=== PATIENT | female | born 1990 | race Caucasian/White ===

== ENCOUNTER 2019-12-12 19:44 | Emergency (ER) | payer SELFPAY ==
[2019-12-12 19:53] VITALS: BP 99/66; PULSE 75; RESP 15; TEMP 36.4; O2SAT 100; BMI 22.3
--- NOTE | 2019-12-12 20:10 | ED_ITS ---
Entered by Judi Chen, acting as scribe for CarlosHalina Sandro HPI - Female Genitourinary General: Chief complaint: Vaginal Bleeding Stated complaint: n/v/abnormal period Time Seen by Provider: 12/12/19 20:07 Source: patient Mode of arrival: ambulatory Limitations: no limitations History of Present Illness: HPI Narrative: 29 yo f came to the er for nausea, vomiting and vaginal bleeding. Onset was today. Pt states that she has been very lightheaded,chills, lower abd pain, vomiting, migraine and and large blood clotts around 1830 this evening. MD elicited complaint: vaginal bleeding and other (nausea, vomiting, numbness in ext, lightheaded, chills, lower abd pain and migraine) Onset (ago): day(s) (today) Location of symptoms: vaginal Severity: mild Quality of pain: cramping Consistency: constant Vaginal discharge: none Vaginal bleeding: heavy and clots Exacerbating factors: none Relieving factors: none Associated symptoms: Reports abdominal pain, fevers/chills, headache(s), nausea and vaginal bleeding; Deny syncope Patient : No Date of Last Menstrual Period: 12/09/19 Review of Systems General: Reports: other (negative unless marked) Const: Reports: fever and chills Eyes: Denies: change in vision or blurry vision ENMT: Denies: throat pain, painful swallowing, hoarseness, ear pain, ear discharge, Change in hearing or nasal discharge Card: Denies: chest pain, palpitations, irregular heart rhythm, syncope, pre- syncope, shortness of breath on exertion or shortness of breath when lying down Resp: Denies: shortness of breath, productive cough, non-productive cough, wheezing, coughing up blood or chest congestion GI: Reports: abdominal pain, nausea and vomiting : Reports: vaginal bleeding Musc: Denies: neck pain, back pain, extremity pain, extremity swelling, joint pain, joint swelling, joint warmth or joint stiffness Skin/Breast: Denies: rash, skin tenderness or yellow skin Neuro: Reports: headache and numbness in extremities Endo: Denies: excessive thirst, tired all the time, cold intolerance, excessive sweating, flushing or hot flashes Alex/Lymph: Denies: easy bruising, easy bleeding, petechiae or enlarged lymph nodes All/Imm: Denies: hives, throat swelling, tongue swelling, facial swelling or acute wheezing PFSH ED PFSH: Social History Smoking and tobacco status: former smoker Female Reproductive History: Date of last menstrual period: 12/09/19 Physical Exam Const: COMMON NORMALS: no apparent distress, oriented x3, no limitations, healthy appearing and well nourished EXAM LIMITATIONS: no altered mental status GENERAL APPEARANCE: cooperative, well kempt and well developed ORIENTATION/CONSCIOUSNESS: Yes awake HENMT: COMMON NORMALS: normocephalic, head/scalp atraumatic, hearing grossly normal bilaterally, external ears normal, EAC's normal, external nose normal and moist oral mucous membranes HEAD & SCALP: normal to inspection, normocephalic and atraumatic FACE & SINUS: normal facial exam and face symmetric NOSE: external nose normal and nares normal EXTERNAL EAR: Yes external ears normal EXTERNAL AUDITORY CANAL: EAC's normal MOUTH: oral and palatal mucosa normal and tongue normal Eye: COMMON NORMALS: PERRL, EOMs intact bilaterally, conjunctivae normal and no scleral icterus GENERAL EYE: normal appearance of both eyes and normal light reflex CONJUNCTIVA: Yes conjunctivae normal SCLERA: sclerae normal CORNEA: Yes corneas normal PUPIL: Yes PERRL DIRECT OPHTHALMOSCOPY: Yes normal light reflex Neck/C-Spine: COMMON NORMALS: full ROM, no lymphadenopathy, supple, no meningeal signs and no JVD GENERAL: Yes normal visual inspection and Yes trachea midline CERVICAL SPINE: Yes cervical ROM normal Chest: COMMONS NORMALS: inspection of chest normal and palpation of chest normal Resp: COMMON NORMALS: normal respiratory effort, no retractions, no use of accessory muscles and clear to auscultation bilaterally EFFORT & INSPECTION: Yes able to speak in complete sentences AUSCULTATION: clear to auscultation bilaterally Cardio: COMMON NORMALS: no JVD, regular rate, regular rhythm, S1 normal heart sound, S2 normal heart sound, no gallops, no clicks, no murmurs and no rub JUGULAR VENOUS DISTENTION: no JVD RATE: regular rate RHYTHM: regular rhythm HEART SOUNDS: S1 normal and S2 normal GI: COMMON NORMALS: soft to palpation, non-tender, no hepatosplenomegaly and no masses INSPECTION: Yes normal to inspection PALPATION: Yes soft and Yes no hepatosplenomegaly : COMMON NORMALS: Yes no CVA tenderness and Yes bimanual exam normal BLADDER/KIDNEY EXAM: Yes no CVA tenderness SPECULUM EXAM - VAGINA: Yes vaginal bleeding SPECULUM EXAM - CERVIX: Yes cervical os closed BIMANUAL EXAM - VAGINA & UTERUS: Yes normal bimanual exam, Yes normal cervical palpation and No cervical motion tenderness OB/EXTERNAL & SPECULUM: vaginal bleeding Back/Pelvis: COMMON NORMALS: no CVA tenderness, thoracic and lumbar spine normal to inspection, no thoracic nor lumbar tenderness and thoraco-lumbar ROM normal Extremity: COMMON NORMALS: normal to inspection, full ROM, normal capillary refill, no joint enlargement, no clubbing, cyanosis or edema and no calf tenderness Neuro: COMMON NORMALS: oriented x3, CN's II-XII intact bilaterally, moves all extremities, no focal motor deficits and no sensory deficits noted MENINGEAL SIGNS: Yes no meningeal signs Psych: COMMON NORMALS: mental status grossly normal, thought process normal, cooperative, affect normal, speech normal and activity/motor behavior normal APPEARANCE: Yes well kempt SPEECH: Yes normal speech THOUGHT PROCESS: normal thought process Skin: COMMON NORMALS: no rashes or lesions noted, skin turgor normal, no jaundice, no petechiae and no mottling GENERAL SKIN EXAM: no rashes or lesions noted and turgor normal Course Vital Signs: Vital signs: Vital Signs Temperature 97.5 F L 12/12/19 19:53 Pulse Rate 99 12/12/19 23:32 Respiratory Rate 19 H 12/12/19 23:32 Blood Pressure 94/74 12/12/19 23:32 Pulse Oximetry 99 12/12/19 23:32 MDM - Female MDM Narrative: Medical decision making narrative: Jenny is a very nice 29-year-old female who comes in complaining of a heavy menstrual cycle, generalized malaise, chills and a headache. She had no measured fever. A cause cannot be determined although viral syndrome is still a possibility but has been ruled out and the patient's ultrasound is unremarkable. I have offered further work-up to include CT of the head as well as abdomen pelvis to look for pathology a spinal tap and cardiac markers but the patient refuses. She is feeling much better and wants to go home. She agrees to return should her symptoms change or worsen. Lab Data: Attestation: I reviewed the patient's lab results. Labs: Lab Results 12/12/19 12/12/19 12/12/19 Range/Units 20:09 20:09 20:09 WBC 7.7 (4.0-10.0) 10^3/ uL RBC 4.82 (4.1-5.3) 10^6/u L Hgb 12.6 (11.5-15.3) g/dL Hct 39.9 (37.0-47.0) % MCV 82.8 (81-99) fL MCH 26.1 L (28.0-34.0) pg MCHC 31.6 (30.0-36.0) g/dL RDW 12.6 (12.1-15.1) % Plt Count 221 (130-400) 10^3/c mm MPV 11.3 H (7.4-10.4) fL Neut % (Auto) 82.2 % Lymph % (Auto) 11.5 % [place] % (Auto) 4.5 % Eos % (Auto) 1.2 % Baso % (Auto) 0.3 % Neut # (Auto) 6.4 (1.8-7.7) 10^3/u L Lymph # (Auto) 0.9 (0.8-4.8) 10^3/u L [place] # (Auto) 0.4 (0.2-0.9) 10^3/u L Eos # (Auto) 0.1 (0.0-0.8) 10^3/u L Baso # (Auto) 0.0 (0.0-0.1) 10^3/u L Nucleated RBC % (a uto) 0 % Nucleated RBCs # 0.0 /100WBC Sodium 143 (136-145) mmol/L Potassium 3.4 L (3.5-5.1) mmol/L Chloride 105 (98-107) mmol/L Carbon Dioxide 23 (22-29) mmol/L Anion Gap 18.4 (5-19) BUN 11 (6-20) mg/dL Creatinine 0.7 (0.5-0.9) mg/dL GFR Calculation 98.9 (90-130) mL/min Glucose 117 H (65-115) mg/dL Calcium 10.4 (8.5-10.5) mg/dL Magnesium (1.7-2.3) mg/dL Total Bilirubin 0.7 (0.15-1.2) mg/dL AST 14 (0-32) U/L ALT 11 (0-33) U/L Alkaline Phosphata se 51 (35-105) IU/L Total Protein 7.7 (6.6-8.7) g/dL Albumin 4.8 (3.5-5.2) g/dL Globulin 2.9 (1.3-4.6) g/dL Lipase 49 (13-60) U/L HCG, Qual Negative (Negative) Urine Color (Yellow) Urine Appearance (CLEAR) Urine pH (5-7) Ur Specific Gravit y (1.005-1.030) Urine Protein (Negative) Urine Glucose (UA) (Normal) Urine Ketones (Negative) Urine Blood (Negative) Urine Nitrate (Negative) Urine Bilirubin (NEGATIVE) Prot Sulfosalicyli c Acd Urine Urobilinogen (Negative) mg/dL Ur Leukocyte Naty ase (Negative) Urine RBC (0-2) /hpf Urine WBC (0-5) /hpf Ur Squamous Epith Cells (0-5) Urine Bacteria (NONE) Urine Mucus Influenza Type A A g (Negative) POC Influenza B Ag (Negative) 12/12/19 12/12/19 12/12/19 Range/Units 21:20 21:22 21:30 WBC (4.0-10.0) 10^3/ uL RBC (4.1-5.3) 10^6/u L Hgb (11.5-15.3) g/dL Hct (37.0-47.0) % MCV (81-99) fL MCH (28.0-34.0) pg MCHC (30.0-36.0) g/dL RDW (12.1-15.1) % Plt Count (130-400) 10^3/c mm MPV (7.4-10.4) fL Neut % (Auto) % Lymph % (Auto) % [place] % (Auto) % Eos % (Auto) % Baso % (Auto) % Neut # (Auto) (1.8-7.7) 10^3/u L Lymph # (Auto) (0.8-4.8) 10^3/u L [place] # (Auto) (0.2-0.9) 10^3/u L Eos # (Auto) (0.0-0.8) 10^3/u L Baso # (Auto) (0.0-0.1) 10^3/u L Nucleated RBC % (a uto) % Nucleated RBCs # /100WBC Sodium (136-145) mmol/L Potassium (3.5-5.1) mmol/L Chloride (98-107) mmol/L Carbon Dioxide (22-29) mmol/L Anion Gap (5-19) BUN (6-20) mg/dL Creatinine (0.5-0.9) mg/dL GFR Calculation (90-130) mL/min Glucose (65-115) mg/dL Calcium (8.5-10.5) mg/dL Magnesium 2.3 (1.7-2.3) mg/dL Total Bilirubin (0.15-1.2) mg/dL AST (0-32) U/L ALT (0-33) U/L Alkaline Phosphata se (35-105) IU/L Total Protein (6.6-8.7) g/dL Albumin (3.5-5.2) g/dL Globulin (1.3-4.6) g/dL Lipase (13-60) U/L HCG, Qual (Negative) Urine Color Yellow (Yellow) Urine Appearance Turbid (CLEAR) Urine pH 9 H (5-7) Ur Specific Gravit y 1.010 (1.005-1.030) Urine Protein Trace (Negative) Urine Glucose (UA) Trace H (Normal) Urine Ketones 1+ H (Negative) Urine Blood Neg (Negative) Urine Nitrate Negative (Negative) Urine Bilirubin Neg (NEGATIVE) Prot Sulfosalicyli c Acd Negative Urine Urobilinogen Norm (Negative) mg/dL Ur Leukocyte Naty ase Negative (Negative) Urine RBC None (0-2) /hpf Urine WBC 0-4 H (0-5) /hpf Ur Squamous Epith Cells 0-4 H (0-5) Urine Bacteria 2+ H (NONE) Urine Mucus Trace Influenza Type A A g Negative (Negative) POC Influenza B Ag Negative (Negative) Imaging Data: US: Radiologist's impression: Pelvic ultrasound, technologist interpretation -normal findings. No ovarian cysts, no ovarian torsion. No free fluid. See full forma l report. Discharge Plan Discharge Patient Disposition: Home, Self-Care Clinical Impression: Vaginal bleeding, Acute viral syndrome Condition: Stable Prescriptions: New Tamiflu 75 mg capsule 75 mg PO DAILY 5 Days Qty: 10 RF: 0 Zofran 4 mg tablet 4 mg PO Q6H PRN (Reason: nausea and vomiting) Qty: 20 RF: 0 Discharge Orders: Discharge Order (Routine); Ordered 12/12/19 Ordered By: Halina Gonzalez Referrals: Morgan Johns MD [Primary Care Provider] - 1-3 days Discharge Diet: Advance as tolerated Discharge Activity: Increase activity as tolerated Patient Instructions: Menstruation (ED), Influenza (ED), Acute Nausea and Vomiting (ED), Viral Syndrome (ED) Activity Restrictions/Additional Instructions: Please return to the ER immediately for any of the signs or symptoms listed on your discharge instruction sheets, worsening/changing of your symptoms, you are not getting better as quickly as expected, or for ANY other cause or concerns. Discharge Date/Time: 12/12/19 23:33 Coding Level of Care Code ED Highway Traffic Control Technician for Chg Fwd Exam Comprehensive The documentation recorded by the Gustavo petty Stephanie Lyn, accurately reflects the service I personally performed and the decisions made by Babin Eli N Dec 12, 2019 19:44
[2019-12-12 20:16] LABS: Basophils % 0.3 %; Eosinophils # 0.1 10^3/uL (0.0-0.8); Eosinophils % 1.2 %; Hematocrit 39.9 % (37.0-47.0); Hemoglobin 12.6 g/dL (11.5-15.3); Lymphocytes # 0.9 10^3/uL (0.8-4.8); Lymphocytes % 11.5 %; Mean Corpuscular HGB Conc 31.6 g/dL (30.0-36.0); Mean Corpuscular Hemoglobin 26.1 pg (28.0-34.0); Mean Corpuscular Volume 82.8 fL (81-99); Mean Platelet Volume 11.3 fL (7.4-10.4); Monocytes # 0.4 10^3/uL (0.2-0.9); Monocytes % 4.5 %; Neutrophils # 6.4 10^3/uL (1.8-7.7); Neutrophils % 82.2 %; Nucleated Red Blood Cells % 0 %; Platelet Count 221 10^3/cmm (130-400); Red Blood Count 4.82 10^6/uL (4.1-5.3); Red Cell Distribution Width 12.6 % (12.1-15.1); White Blood Count 7.7 10^3/uL (4.0-10.0)
--- NOTE | 2019-12-12 20:17 | US_ITS ---
WS: [id number] Pelvic ultrasound, 12/12/2019 Clinical Data: Pain Comparison: None. Findings: The uterus measures 8.6 cm x 5.2 cm x 4.1 cm. The endometrium is 0.3 cm. No intrauterine or abnormal intrauterine mass is seen. The left ovary measures 3.2 cm x 2.7 cm x 2.3 cm with no cysts or masses. The right ovary measures 2.8 cm x 2.0 cm x 2.2 cm with no cysts or masses. US/US pelvic complete* [id number] Impression: Negative pelvic ultrasound.
[2019-12-12 20:39] LABS: Alanine Aminotransferase 11 U/L (0-33); Albumin Level 4.8 g/dL (3.5-5.2); Alkaline Phosphatase 51 IU/L (35-105); Anion Gap 18.4 (5-19); Aspartate Amino Transferase 14 U/L (0-32); Blood Urea Nitrogen 11 mg/dL (6-20); Calcium 10.4 mg/dL (8.5-10.5); Carbon Dioxide 23 mmol/L (22-29); Chloride 105 mmol/L (98-107); Creatinine Clr Calc Pharmacy 105.5949; Globulin 2.9 g/dL (1.3-4.6); Glomerular Filtration Rate 98.9 mL/min (90-130); Glucose 117 mg/dL (65-115); Lipase 49 U/L (13-60); Potassium 3.4 mmol/L (3.5-5.1); Sodium 143 mmol/L (136-145); Total Bilirubin 0.7 mg/dL (0.15-1.2); Total Protein 7.7 g/dL (6.6-8.7)
[2019-12-12 20:40] VITALS: RESP 18; O2SAT 98
[2019-12-12] MEDS: morphine 4 mg/mL SDV 1 mL IVP (20:40)
[2019-12-12] MEDS: ondansetron 2 mg/ML SDV 2 mL 4 MG IVP (20:41)
[2019-12-12 20:52] LABS: HCG, Serum Qual Negative (Negative)
[2019-12-12 21:46] VITALS: BP 87/54; PULSE 54; RESP 18; O2SAT 99
[2019-12-12 22:12] LABS: Bilirubin Urine Neg (NEGATIVE); Blood Urine Neg (Negative); Glucose Urine UA Trace (Normal); Ketones Urine 1+ (Negative); Leukocyte Esterase Urine Negative (Negative); Nitrate Urine Negative (Negative); Protein Urine Trace (Negative); Sulfosalicylic Acid Urine Negative; Urine Appearance Turbid (CLEAR); Urine Color Yellow (Yellow); Urobilinogen Urine Norm (Negative); pH Urine 9 (5-7)
[2019-12-12 22:13] LABS: Squamous Epithelial Cell Urine 0-4 (0-5); WBC Urine 0-4 /hpf (0-5)
[2019-12-12 22:14] LABS: Influenza A by IFA Negative (Negative); Influenza B by IFA Negative (Negative)
[2019-12-12 22:14] LABS: Bacteria Urine 2+; Mucus Urine TRACE
[2019-12-12] MEDS: sodium chloride 0.9% 1,000 ML 999 ML IV (22:14)
[2019-12-12 22:15] VITALS: BP 94/60; PULSE 57; RESP 18; O2SAT 99
[2019-12-12] MEDS: metoclopramide 5 mg/mL SDV 2 mL 10 MG IVP (22:33)
[2019-12-12 22:48] LABS: Magnesium 2.3 mg/dL (1.7-2.3)
[2019-12-12 23:32] VITALS: BP 94/74; PULSE 99; RESP 19; O2SAT 99
== END 2019-12-12 23:33 | disposition home or self-care (01) ==
PROVIDERS: Emergency Provider Emergency Medicine; PCP Family Medicine
DX: N93.9 Abnormal uterine and vaginal bleeding, unspecified (principal); B34.9 Viral infection, unspecified; Z87.891 Personal history of nicotine dependence
CPT/HCPCS: 36415; 76856; 80053; 81001; 83690; 83735; 84703; 85025; 87210; 87491; 87591; 87804; 96360; 96361; 96365; 96374; 96375; 99283; E0352; J0131; J2270; J2405; J2765; J7030

== ENCOUNTER 2020-03-13 22:11 | Emergency (ER) | payer SELFPAY ==
[2020-03-13 22:19] VITALS: BP 111/80; PULSE 76; RESP 20; TEMP 36.9; O2SAT 100; BMI 21.6
--- NOTE | 2020-03-13 22:37 | W.ED.EXTPRO ---
HPI - Extremity Problem General: Chief complaint: Extremity Problem,Nontraumatic Stated complaint: possible stroke Time Seen by Provider: 03/13/20 22:28 History of Present Illness: HPI Narrative: Patient ambulates in complain about neck pain hurts on the left and right side has a history of a herniated disc in her neck she said that she has been very anxious to and that her neck hurt worse and because of her pain she did not want to move her arm and leg and she said that is improved markedly patient appears anxious MD Complaint: extremity pain Onset (ago): hour(s) Pain Consistency: constant Quality: aching Relieving factors: immobilization Associated symptoms: Reports other (Patient complains of slight numbness in her right arm and her leg that has improved now she was worried that she might be having a stroke but she thinks she does not set her pain was a so bad from her neck where she been working on the garden that she did not want to move but that has improved); Deny chest pain, fever(s) or rash Review of Systems Const: Denies: fever(s), chills or body aches Eyes: Denies: change in vision or blurry vision ENMT: Denies: throat pain or nasal congestion Card: Denies: chest pain or dyspnea on exertion Resp: Denies: dyspnea, productive cough or non-productive cough GI: Denies: abdominal pain, nausea or vomiting Musc: Reports: neck pain; Denies: extremity pain Skin/Breast: Denies: rash Neuro: Reports: numbness in extremities, weakness in extremities and other (History of speech deficit since childhood); Denies: headache(s), lack of coordination, difficulty walking, vertigo, confusion, Slurred speech present, difficulty communicating thoughts, seizure-like activity or involuntary movements Psych: Denies: anxiety or depression Alex/Lymph: Denies: easy bruising PFSH ED PFSH: Social History Smoking and tobacco status: never smoked Female Reproductive History: Date of last menstrual period: 03/02/20 Physical Exam Const: COMMON NORMALS: no acute distress, average body habitus and patient oriented x3 HENMT: COMMON NORMALS: normocephalic HEAD & SCALP: normal to inspection and normocephalic FACE & SINUS: normal facial exam Eye: COMMON NORMALS: conjunctivae normal GENERAL EYE: appearance normal, both eyes and all related structures CONJUNCTIVA: Yes conjunctivae normal Neck/C-Spine: COMMON NORMALS: full ROM (Trapezius are tender muscle tight left side) and no JVD Chest: COMMONS NORMALS: normal inspection of the chest Resp: COMMON NORMALS: normal respiratory effort and clear to auscultation bilaterally AUSCULTATION: clear to auscultation bilaterally Cardio: COMMON NORMALS: no JVD, regular rate and regular rhythm RATE: regular rate RHYTHM: regular rhythm GI: COMMON NORMALS: Normal to inspection, nondistended, normoactive bowel sounds present Extremity: COMMON NORMALS: normal to inspection and full ROM Neuro: COMMON NORMALS: patient oriented x3, CN's II-XII intact bilaterally, moves all extremities and no focal motor deficits SENSORY EXAM: Yes extremities Course Vital Signs: Vital signs: Vital Signs Temperature 98.4 F 03/13/20 22:19 Pulse Rate 76 03/13/20 22:19 Respiratory Rate 20 H 03/13/20 22:19 Blood Pressure 111/80 03/13/20 22:19 Pulse Oximetry 100 03/13/20 22:19 Discharge Plan Discharge Prescriptions: No Action Zofran 4 mg tablet 4 mg PO Q6H PRN (Reason: nausea and vomiting) Qty: 20 RF: 0 Coding Level of Care Code ED Labeling Specialist for Ashg Fili
[2020-03-13] MEDS: LORazepam 2 mg/mL INJ 1 mL IM (23:01)
[2020-03-13] MEDS: ketorolac 60 mg/2 mL INJ IM (23:01)
[2020-03-13 23:51] VITALS: BP 108/68; PULSE 76; RESP 14; O2SAT 96
== END 2020-03-13 23:58 | disposition home or self-care (01) ==
PROVIDERS: Emergency Provider Nurse Practitioner Family
DX: M54.2 Cervicalgia (principal); R20.0 Anesthesia of skin
CPT/HCPCS: 12345; 96372; 99281; 99283; J1885; J2060

== ENCOUNTER 2021-04-17 10:51 | Emergency (ER) | payer SELFPAY ==
[2021-04-17 11:13] VITALS: BP 128/81; PULSE 82; RESP 16; TEMP 36.7; O2SAT 99; BMI 24.1
--- NOTE | 2021-04-17 11:20 | W.ED.ANXIETY ---
HPI - Anxiety General: Chief Complaint: Headache Stated Complaint: n/v , headache Time Seen by Provider: 04/17/21 11:12 Source: patient and family Mode of arrival: ambulatory Limitations: no limitations History of Present Illness: HPI narrative: Patient reports that she had an anxiety attack after arguing with her sister this morning. She states afterwards she began having a frontal headache bilaterally with difficulty speaking normally. She states this is happened before when she became stressed out. She reports having similar episode last year that resolved spontaneously. She denies any other neurological changes. She denies any change in strength or vision. No paresthesias. No weakness. complaint: anxiety Onset (ago): day(s) (1) Severity: moderate Quality: improving Place: home History of similar episodes: Yes Provoking factors: emotional stress Relieving factors: rest Associated symptoms: Reports headache(s), nausea and vomiting; Deny chest pain, chills, confusion, fever(s) or palpitations Review of Systems Const: Denies: fever(s) or chills Eyes: Denies: change in vision, blurry vision, blind spots or photophobia ENMT: Denies: throat pain Card: Denies: chest pain or palpitations Resp: Denies: dyspnea or wheezing GI: Reports: nausea and vomiting; Denies: abdominal pain : Denies: flank pain Musc: Denies: neck pain or back pain Skin/Breast: Denies: rash or pruritus Neuro: Reports: headache(s); Denies: numbness in extremities, weakness in extremities, sensory changes, lack of coordination, difficulty walking, vertigo, confusion, behavioral changes, Slurred speech present, difficulty communicating thoughts, seizure-like activity or involuntary movements Psych: Reports: anxiety; Denies: depression, visual hallucinations or auditory hallucinations Alex/Lymph: Denies: enlarged lymph nodes PFSH ED PFSH: Social History Smoking and tobacco status: never smoked Female Reproductive History: Date of last menstrual period: 03/02/20 Physical Exam Const: COMMON NORMALS: no acute distress, average body habitus, patient oriented x3, no limitations, healthy appearing, alert and well nourished EXAM LIMITATIONS: no altered mental status GENERAL APPEARANCE: cooperative, comfortable and anxious (Mild anxiety) HENMT: COMMON NORMALS: normocephalic and atraumatic HEAD & SCALP: normocephalic and atraumatic FACE & SINUS: normal facial exam Eye: COMMON NORMALS: EOMs intact bilaterally Neck/C-Spine: COMMON NORMALS: full ROM, no lymphadenopathy, supple and no meningeal signs GENERAL: Yes normal visual inspection Lymph: LYMPHATIC: no lymphadenopathy noted Chest: COMMONS NORMALS: normal inspection of the chest and normal palpation of entire chest wall CHEST: No Ecchymosis present and No rash Resp: COMMON NORMALS: normal respiratory effort, No retractions and clear to auscultation bilaterally EFFORT & INSPECTION: No respiratory distress AUSCULTATION: clear to auscultation bilaterally Cardio: COMMON NORMALS: regular rate, regular rhythm and Peripheral pulses 2+ throughout JUGULAR VENOUS DISTENTION: no JVD RATE: regular rate RHYTHM: regular rhythm PERIPHERAL PULSES: Peripheral pulses 2+ throughout GI: COMMON NORMALS: Normal to inspection, nondistended, normoactive bowel sounds present and non-tender : COMMON NORMALS: Yes no CVA tenderness BLADDER/KIDNEY EXAM: Yes no CVA tenderness Back/Pelvis: COMMON NORMALS: no CVA tenderness Extremity: COMMON NORMALS: normal to inspection, full ROM and capillary refill normal Neuro: COMMON NORMALS: patient oriented x3, CN's II-XII intact bilaterally, no focal motor deficits and no sensory deficits noted SENSORIUM/ORIENTATION: Yes alert and Yes other (No focal neurological deficits. Speech is normal now.) MENINGEAL SIGNS: Yes no meningeal signs Psych: COMMON NORMALS: mental status grossly normal and Normal thought process present THOUGHT PROCESS: Normal thought process present Skin: COMMON NORMALS: no rashes or lesions noted and no wounds GENERAL SKIN EXAM: no rashes or lesions noted Course Vital Signs: Vital signs: Vital Signs Temperature 98.1 F 04/17/21 11:13 Pulse Rate 82 04/17/21 11:13 Respiratory Rate 16 04/17/21 11:13 Blood Pressure 128/81 04/17/21 11:13 Pulse Oximetry 99 04/17/21 11:13 MDM - Anxiety MDM Narrative: Medical decision making narrative: I believe her symptoms are purely due to anxiety. Therefore, will defer CT scan of the brain. Differential Diagnosis: Differential diagnosis anxiety: Likely acute anxiety Discharge Plan Discharge Patient Disposition: Home Clinical Impression: Acute anxiety Migraine Qualifiers: Migraine type: without aura Status migrainosus presence: without status migrainosus Intractability: not intractable Qualified Code(s): G43.009 - Migraine without aura, not intractable, without status migrainosus Condition: Stable Prescriptions: New Naprosyn 500 mg tablet 500 mg PO BID PRN (Reason: pain) Qty: 10 RF: 2 promethazine 25 mg tablet 25 mg PO Q6H PRN (Reason: nausea and vomiting) Qty: 14 RF: 1 Discontinued aspirin 325 mg Tablet 350 mg PO Q4H PRN (Reason: PAIN/HEADACHE) RF: 0 Discharge Orders: Discharge ED (Routine); Ordered 04/17/21 Ordered By: Tereso Irby Discharge Diet: Usual diet Discharge Activity: Resume usual activity Patient Instructions: Headache - Migraine (Adult) Activity Restrictions/Additional Instructions: May take promethazine as needed for nausea. May take naproxen as needed for pain. Drink plenty of fluids. Return if any problems. Follow-up with a family practice doctor as needed. Coding Level of Care Code ED Psychiatric Registered Nurse for Hung Fwd Exam Comprehensive
[2021-04-17] MEDS: sodium chloride 0.9% 500 ML 1000 ML IV (11:37)
[2021-04-17] MEDS: ketorolac 30 mg/mL INJ IVP (11:41)
[2021-04-17] MEDS: ondansetron 2 mg/ML SDV 2 mL 4 MG IVP (11:41)
[2021-04-17 12:44] VITALS: BP 97/65; PULSE 61; RESP 16; O2SAT 100
== END 2021-04-17 12:45 | disposition home or self-care (01) ==
PROVIDERS: Emergency Provider Family Medicine
DX: G43.009 Migraine without aura, not intractable, without status migrainosus (principal); F41.9 Anxiety disorder, unspecified
CPT/HCPCS: 96361; 96374; 96375; 99283; J1885; J2405; J7050

== ENCOUNTER 2021-07-13 13:47 | Emergency (ER) | payer SELFPAY ==
[2021-07-13 14:01] VITALS: BP 108/74; PULSE 75; RESP 18; TEMP 36.8; O2SAT 98; BMI 30.9
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
[2021-07-13 17:51] VITALS: BP 118/60; PULSE 74; RESP 18; TEMP 36.6; O2SAT 100
[2021-07-13] MEDS: ketorolac 30 mg/mL INJ IVP (17:55)
[2021-07-13 18:11] LABS: Basophils # 0.1 10^3/uL (0.0-0.1); Basophils % 0.6 %; Eosinophils # 0.5 10^3/uL (0.0-0.8); Eosinophils % 6.3 %; Hematocrit 40.7 % (37.0-47.0); Hemoglobin 12.6 g/dL (11.5-15.3); Lymphocytes # 1.1 10^3/uL (0.8-4.8); Lymphocytes % 12.9 %; Mean Corpuscular Hemoglobin 26.1 pg (28.0-34.0); Mean Corpuscular Volume 84.4 fl (81-99); Mean Platelet Volume 11.3 fL (7.4-10.4); Monocytes # 0.5 10^3/uL (0.2-0.9); Monocytes % 6.3 %; Neutrophils # 6.31 10^3/uL (1.8-7.7); Neutrophils % 73.6 %; Nucleated Red Blood Cells % 0 %; Platelet Count 220 10^3/cmm (130-400); Red Blood Count 4.82 10^6/uL (4.1-5.3); Red Cell Distribution Width 13.2 % (12.1-15.1); White Blood Count 8.6 10^3/uL (4.0-10.0)
[2021-07-13 18:20] VITALS: BP 114/77; PULSE 75; RESP 16; TEMP 36.8; O2SAT 100
[2021-07-13 18:20] LABS: Alanine Aminotransferase 11 U/L (0-33); Albumin Level 4.5 g/dL (3.5-5.2); Alkaline Phosphatase 51 IU/L (35-105); Anion Gap 13.5 (5-19); Aspartate Amino Transferase 14 U/L (0-32); Blood Urea Nitrogen 9 mg/dL (6-20); Calcium 9.3 mg/dL (8.5-10.5); Carbon Dioxide 24 mmol/L (22-29); Chloride 101 mmol/L (98-107); Globulin 2.9 g/dL (1.3-4.6); Glomerular Filtration Rate 117.4 mL/min (90-130); Glucose 91 mg/dL (65-115); Osmolality Calculated 278 mOsm/kg (285-295); Potassium 3.5 mmol/L (3.5-5.1); Sodium 135 mmol/L (136-145); Total Bilirubin 0.7 mg/dL (0.15-1.2); Total Protein 7.4 g/dL (6.6-8.7); Urine Appearance Hazy (CLEAR); Urine Color Yellow (Yellow); pH Urine 5 (5-7)
[2021-07-13 18:21] LABS: Add Urine Microscopic? YES; Bilirubin Urine Neg (Negative); Blood Urine 2+ (Negative); Glucose Urine UA Norm (Normal); Ketones Urine Negative (Negative); Leukocyte Esterase Urine Negative (Negative); Nitrate Urine Negative (Negative); Protein Urine Neg (Negative); Specific Gravity, Urine 1.025 (1.005-1.030); Urobilinogen Urine Norm (Negative)
[2021-07-13 18:22] LABS: Add Urine Culture? No; Bacteria Urine TRACE /hpf; Mucus Urine 1+ /hpf; Squamous Epithelial Cell Urine 15-25 /hpf (0-5)
[2021-07-13 18:51] VITALS: BP 125/74; PULSE 78; RESP 18; O2SAT 98
== END 2021-07-13 18:54 | disposition home or self-care (01) ==
PROVIDERS: Emergency Provider Family Medicine
DX: Z04.1 Encounter for examination and observation following transport accident (principal); V89.2XXA Person injured in unspecified motor-vehicle accident, traffic, initial encounter
CPT/HCPCS: 71045; 72040; 80053; 81001; 85025; 96374; 99283; J1885

== ENCOUNTER 2022-07-09 21:42 | Emergency (ER) | payer SELFPAY ==
[2022-07-09 22:07] VITALS: BP 98/64; PULSE 100; RESP 22; TEMP 37.4; O2SAT 98; BMI 25.7
[2022-07-10 00:50] VITALS: BP 108/63; PULSE 88; RESP 18; O2SAT 99
[2022-07-10 01:10] VITALS: BP 103/66; PULSE 84; RESP 17; O2SAT 97
[2022-07-10 01:29] LABS: SARS Covid-2 Antigen Positive (Negative)
[2022-07-10 01:35] VITALS: BP 95/59; PULSE 86; RESP 17; O2SAT 99
[2022-07-10] MEDS: ondansetron 2 mg/ML SDV 2 mL 4 MG IVP (01:43)
[2022-07-10] MEDS: lactated ringers 1,000 ML 999 ML IV (01:43)
--- NOTE | 2022-07-10 01:44 | W.ED.NAVMDI ---
HPI - Nausea/Vomiting/Diarrhea General: Chief complaint: Nausea/Vomiting/Diarrhea Stated complaint: weakness Time Seen by Provider: 07/10/22 01:04 History of Present Illness: 31-year-old female presents with some generalized weakness, sore throat not feeling well with some nausea and vomiting. Patient reports that her sister had COVID last week. That her symptoms started couple days ago. Patient denies any chest pain, shortness of breath, wheezing. Associated nausea: Yes Associated symtoms: Reports headache(s) and nausea; Denies change in vision, chest pain, dysuria or palpitations Review of Systems Const: Reports: fever(s), chills and body aches Eyes: Denies: change in vision or blurry vision ENMT: Reports: throat pain; Denies: ear or mastoid pain Card: Denies: chest pain or palpitations Resp: Reports: non-productive cough (Very occasional and mild); Denies: dyspnea or wheezing GI: Reports: nausea and vomiting; Denies: abdominal pain : Denies: flank pain or dysuria Musc: Denies: neck pain or back pain Skin/Breast: Denies: rash or pruritus Neuro: Reports: headache(s) PFSH ED PFSH: Social History Smoking and tobacco status: never smoked Female Reproductive History: Date of last menstrual period: 07/09/22 Physical Exam Const: COMMON NORMALS: average body habitus, patient oriented x3 and alert HENMT: COMMON NORMALS: normocephalic and hearing grossly normal bilaterally HEAD & SCALP: normocephalic Eye: COMMON NORMALS: Equal, round and reactive pupils present and EOMs intact bilaterally PUPIL: Yes Equal, round and reactive pupils present Resp: COMMON NORMALS: normal respiratory effort, No use of accessory muscles and clear to auscultation bilaterally AUSCULTATION: clear to auscultation bilaterally Cardio: COMMON NORMALS: regular rate and regular rhythm RATE: regular rate RHYTHM: regular rhythm GI: COMMON NORMALS: Soft to palpation and non-tender PALPATION: Yes Soft to palpation Neuro: COMMON NORMALS: patient oriented x3, moves all extremities and no focal motor deficits SENSORIUM/ORIENTATION: Yes alert Psych: COMMON NORMALS: mental status grossly normal, Normal thought process present and cooperative THOUGHT PROCESS: Normal thought process present Skin: COMMON NORMALS: no rashes or lesions noted GENERAL SKIN EXAM: no rashes or lesions noted Course Vital Signs: Vital signs: Vital Signs Temperature 99.3 F 07/09/22 22:07 Pulse Rate 76 07/10/22 03:02 Respiratory Rate 16 07/10/22 03:02 Blood Pressure 98/65 07/10/22 03:02 Pulse Oximetry 99 07/10/22 03:02 Oxygen Delivery Me thod 07/10/22 01:35 MDM - Nausea/Vomiting/Diarrhea Medical Decision Making Patient positive for COVID-19. Will be provided Zofran for supportive care. Patient's O2 saturations in the upper 90s with no chest pain, shortness of breath. Patient stable and discharged home Lab Data Laboratory Results SARS-CoV-2 Ag (Rapid) Positive (Negative) H 07/10/22 00:56 Discharge Plan Discharge Patient Disposition: Home Clinical Impression: COVID-19 Condition: Stable Prescriptions: New ondansetron HCl 4 mg tablet 4 mg PO Q6H PRN (Reason: nausea and vomiting) Qty: 20 0RF No Action Naprosyn 500 mg tablet 500 mg PO BID PRN (Reason: pain) Qty: 10 2RF Rx Instructions: prn pain promethazine 25 mg tablet 25 mg PO Q6H PRN (Reason: nausea and vomiting) Qty: 14 1RF Rx Instructions: prn n/v. may take 1-2 tabs po q 6 hours prn. diclofenac sodium 75 mg tablet,delayed release (DR/EC) 75 mg PO Q12H PRN (Reason: pain) Qty: 20 0RF tizanidine 4 mg capsule 4 mg PO Q6H PRN (Reason: muscle spasticity) Qty: 20 0RF Rx Instructions: do not exceed 3 doses per 24 hrs Discharge Orders: Discharge ED (Routine); Ordered 07/10/22 Ordered By: Filipe Platt Discharge Diet: Advance as tolerated Discharge Activity: Increase activity as tolerated Patient Instructions: COVID-19 (Coronavirus Disease 2019) (ED), Opioid Safety, Pain Management Activity Restrictions/Additional Instructions: Encourage you to drink plenty of fluids, start with a clear liquid diet and advance as tolerated. Follow-up with your primary care provider as needed return to the ER with increasing shortness of breath chest pain or any other concerns. 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
[2022-07-10 03:02] VITALS: BP 98/65; PULSE 76; RESP 16; O2SAT 99
== END 2022-07-10 03:03 | disposition home or self-care (01) ==
PROVIDERS: Emergency Provider Student in an Organized Health Care Education/Training Program
DX: U07.1 COVID-19 (principal)
CPT/HCPCS: 87426; 96361; 96374; 99284; J2405

== ENCOUNTER 2025-07-14 22:28 | Emergency (ER) | payer BC, MEDICAID, SELFPAY ==
[2025-07-14 22:31] VITALS: BP 107/45; PULSE 78; RESP 16; TEMP 36.6; O2SAT 98; BMI 27.4
--- NOTE | 2025-07-14 23:10 | ED_ITS ---
HPI - Allergic Reaction General: Chief complaint: Allergic Reaction Stated complaint: breaking out hives even after benadryl Time Seen by Provider: 07/14/25 22:44 History of Present Illness: HPI narrative: Patient is a 34-year-old female who presents with acute onset of urticarial lesions that began yesterday at approximately 9:30 PM. The patient reports widespread pruritic welts on her arms, back, and face. She describes the sensation as her skin being on fire. Her mother initially suspected hives and administered Benadryl, which provided temporary relief, but the lesions subsequently returned. The patient took two Benadryl tablets yesterday but ty pically avoids medication due to sedative effects. She denies any previous similar episodes. Potential exposure history includes gardening activity yesterday when she was picking tomatoes and basil with her daughter. She mentions possible exposure to kissing bugs in the garden but is uncertain if this is the trigger. She denies any new medications, foods, or products. No associated respiratory symptoms, gastrointestinal symptoms, or systemic manifestations reported. Related Data Previous Rx's ?Medication ?Instructions ?Recorded naproxen 500 mg tablet (Naprosyn) 500 mg PO BID PRN pa in #10 tabs 04/17/21 promethazine 25 mg tablet 25 mg PO Q6H PRN nausea and 04/17/21 vomiting #14 tabs diclofenac sodium 75 mg 75 mg PO Q12H PRN pain #20 t abs 07/13/21 tablet,delayed release tizanidine 4 mg capsule 4 mg PO Q6H PRN muscle spast icity 07/13/21 #20 caps ondansetron HCl 4 mg tablet 4 mg PO Q6H PRN nausea and 07/10/22 vomiting #20 tabs cetirizine 10 mg capsule (Zyrtec) 10 mg PO DAILY PRN a llergy 07/14/25 symptoms #30 caps diphenhydramine HCl 25 mg capsule 25 mg PO Q6H PRN all ergic reaction 07/14/25 (Benadryl) #30 caps methylprednisolone 4 mg tablets in See Rx Instructions PO .COMPLEX 07/14/25 a dose pack (Medrol ([place])) #21 ea Allergies Allergy/AdvReac Type Severity Reaction Status Date / Time Sulfa (Sulfonamide Allergy Unknown Verified 07/14/25 22:36 Antibiotics) Review of Systems Narrative: Constitutional: No fever reported Respiratory: Denies wheezing or shortness of breath Gastrointestinal: Denies vomiting Integumentary: Positive for pruritic urticarial lesions on arms, back, and face All other systems: Not documented PFSH ED PFSH: Social History Smoking and tobacco/nicotine status: never used tobacco/nicotine Physical Exam Const: COMMON NORMALS: no acute distress GENERAL APPEARANCE: cooperative; not ill appearing and not frail appearing HENMT: COMMON NORMALS: normocephalic, atraumatic and Normal external nose present HEAD & SCALP: normocephalic and atraumatic FACE & SINUS: normal facial exam and face symmetric NOSE: Normal external nose present Eye: COMMON NORMALS: Equal, round and reactive pupils present and EOMs intact bilaterally PUPIL: Yes Equal, round and reactive pupils present Neck/C-Spine: GENERAL: Yes trachea midline Chest: CHEST: Yes Symmetrical chest wall rise Resp: COMMON NORMALS: normal respiratory effort, No retractions, No use of accessory muscles and clear to auscultation bilaterally AUSCULTATION: clear to auscultation bilaterally Cardio: COMMON NORMALS: regular rate and regular rhythm RATE: regular rate RHYTHM: regular rhythm GI: COMMON NORMALS: Normal to inspection, nondistended, normoactive bowel sounds present Extremity: COMMON NORMALS: no pedal edema Neuro: NERIS COMA SCALE: document [facility] findings [place] coma scale eye opening: Spontaneous [place] coma scale verbal response: Orientated [place] coma scale motor response: Obey commands [place] coma scale total score: 15 SENSORY EXAM: Yes extremities (intact) Psych: COMMON NORMALS: speech normal SPEECH: Yes normal speech Skin: NARRATIVE SKIN EXAM: Diffuse urticaria present arms legs trunk. Face is spared. Course Vital Signs: Vital signs: Vital Signs Temperature 98 F 07/14/25 22:31 Pulse Rate 78 07/14/25 22:31 Respiratory Rate 16 07/14/25 22:31 Blood Pressure 107/45 07/14/25 22:31 Pulse Oximetry 98 07/14/25 22:31 Oxygen Delivery Me thod Room Air 07/14/25 22:31 MDM - Allergic Reaction Medical Decision Making Widespread urticaria. Patient is given Benadryl Pepcid and dexamethasone here. Home on Zyrtec, Medrol Dosepak, Benadryl for breakthrough itching. To return for worsening symptoms. She stable for discharge. No radiology studies performed this visit Discharge Plan Discharge Patient Disposition: Home Clinical Impression: Urticaria Condition: Stable Prescriptions: New diphenhydramine HCl [Benadryl] 25 mg capsule 25 mg PO Q6H PRN (Reason: allergic reaction) Qty: 30 0RF methylprednisolone [Medrol ([place])] 4 mg tablets,dose pack See Rx Instructions PO .COMPLEX Qty: 21 0RF Rx Instructions: orally per package directions Zyrtec 10 mg capsule 10 mg PO DAILY PRN (Reason: allergy symptoms) Qty: 30 0RF No Action Naprosyn 500 mg tablet 500 mg PO BID PRN (Reason: pain) Qty: 10 2RF Rx Instructions: prn pain promethazine 25 mg tablet 25 mg PO Q6H PRN (Reason: nausea and vomiting) Qty: 14 1RF Rx Instructions: prn n/v. may take 1-2 tabs po q 6 hours prn. diclofenac sodium 75 mg tablet,delayed release (DR/EC) 75 mg PO Q12H PRN (Reason: pain) Qty: 20 0RF tizanidine 4 mg capsule 4 mg PO Q6H PRN (Reason: muscle spasticity) Qty: 20 0RF Rx Instructions: do not exceed 3 doses per 24 hrs ondansetron HCl 4 mg tablet 4 mg PO Q6H PRN (Reason: nausea and vomiting) Qty: 20 0RF Discharge Orders: Discharge ED (Routine); Ordered 07/14/25 Ordered By: Huber Nunez Patient Instructions: Urticaria (ED), Opioid Safety, Pain Management, Patient Portal & [facility]io Instructions Activity Restrictions/Additional Instructions: Steroid medication as directed. Zyrtec daily for at least the next 3 days. You may take Benadryl as needed for breakthrough itching. Return for trouble breathing, feeling of tightness in your chest or throat, vomiting, any other concerning symptoms. Avoid possible irritants if possible. 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
[2025-07-14 23:46] VITALS: BP 87/64; PULSE 75; O2SAT 100
== END 2025-07-14 23:41 | disposition home or self-care (01) ==
PROVIDERS: Emergency Provider Emergency Medicine
DX: L50.9 Urticaria, unspecified (principal)
CPT/HCPCS: 99283; J8540; J9999; Q0163